=== PATIENT | female | born 2000 | race Caucasian/White ===

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

== ENCOUNTER 2018-05-02 12:51 | Emergency (ER) | payer BC ==
[2018-05-02 15:17] VITALS: BP 125/74
--- NOTE | 2018-05-02 15:37 | UC ---
Ear Complaint HPI - HPI Summary HPI Summary: 17 year old female presents with 2 day history of right ear fullness, pain, and decreased hearing. States she has had URI symptoms for approximately 1 week including nasal congestion, post-nasal drip, sore throat, and occasional non- productive cough. Denies fever, chills, ear drainage, chest pain, shortness of breath, wheezing, abdominal pain, nausea, vomiting, dizziness, or vertigo. - History of Current Complaint Chief Complaint: UCEar Stated Complaint: RIGHT EAR COMPLAINT Time Seen by Provider: 05/02/18 15:21 Hx Obtained From: Patient Hx Last Menstrual Period: 04/29/18 Onset/Duration: Gradual Onset, Lasting Days - 2 Severity Currently: Mild Pain Intensity: 0 Aggravating Factors: Nothing Alleviating Factors: Nothing Associated Signs/Symptoms: Positive: Hearing Loss, URI Symptoms. Negative: Discharge - Allergies/Home Medications Allergies/Adverse Reactions: Allergies Allergy/AdvReac Type Severity Reaction Status Date / Time Iodinated Contrast- Oral and Allergy Unknown Hives Verified 10/03/17 16:39 IV Dye PMH/Surg Hx/FS Hx/Imm Hx Previously Healthy: Yes Respiratory History: Asthma - Surgical History Surgical History: None - Family History Known Family History: Positive: Cardiac Disease - Social History Occupation: Student Lives: Dormitory/Roommates Alcohol Use: None Substance Use Type: None Smoking Status (MU): Never Smoked Tobacco Have You Smoked in the Last Year: No - Immunization History Most Recent Influenza Vaccination: none 2016 Review of Systems Constitutional: Negative Skin: Negative Eyes: Negative ENT: Sore Throat, Ear Ache, Nasal Discharge, Sinus Congestion Respiratory: Negative Cardiovascular: Negative Gastrointestinal: Negative Is Patient Immunocompromised?: No All Other Systems Reviewed And Are Negative: Yes Physical Exam Triage Information Reviewed: Yes Appearance: Well-Appearing, No Pain Distress Vital Signs: Initial Vital Signs Temp 98.0 F 05/02/18 15:13 Pulse 72 05/02/18 15:13 Resp 16 05/02/18 15:13 BP 125/74 05/02/18 15:13 Pulse Ox 99 05/02/18 15:13 Eyes: Positive: Conjunctiva Clear. Negative: Discharge ENT: Positive: Pharyngeal erythema - Mild with cobblestoning, Nasal congestion, TM dull - right, TM red - right, Uvula midline. Negative: Nasal drainage, Tonsillar swelling, Tonsillar exudate, Sinus tenderness Neck: Positive: Supple, Nontender, No Lymphadenopathy Respiratory: Positive: Lungs clear, Normal breath sounds, No respiratory distress Cardiovascular: Positive: RRR, No Murmur Neurological: Positive: Alert Skin Exam: Normal Ear Complaint Course/Dx - Course Course Of Treatment: 17 year old female with 1 week history of URI symptoms and 2 days of right ear pain, fullness, and decreased hearing. Exam revealed a dull , erythematous right TM. Will treat for AOM with 10 day course of amoxicillin and symptomatic treatment. Warning symptoms reviewed with patient. Verbalizes understanding and agrees with POC. - Differential Dx/Diagnosis Differential Diagnosis/HQI/PQRI: Otitis Media, URI Provider Diagnoses: right otitis media, URI Discharge - Sign-Out/Discharge Documenting (check all that apply): Patient Departure All imaging exams completed and their final reports reviewed: No Studies - Discharge Plan Condition: Stable Disposition: HOME Prescriptions: Amoxicillin 875 mg PO BID #20 tablet Fluticasone NASAL SPRAY 50MCG* [Flonase NASAL SPRAY 50MCG*] 2 spray BOTH NARES DAILY #1 btl Patient Education Materials: Ear Infection (ED), Upper Respiratory Infection ( ED) Forms: *Physical Education Release Referrals: No Primary Care Phys,NOPCP [Primary Care Provider] - Additional Instructions: Your exam revealed an infection of the right ear likely secondary to the upper respiratory infection you have been having. We will start you on an antibiotic to treat for the infection. Start amoxicillin 875 mg 1 tab twice a day for 10 days. Take this with food to avoid upset stomach. Be sure to take the entire course even if you are feeling better. Start fluticasone (Flonase) nasal spray 2 sprays each nostril once daily to help reduce inflammation and promote drainage. Take acetaminophen (Tylenol) or ibuprofen (Advil, Motrin) according to directions as needed for pain. Return here or follow at the [facility] if symptoms persist. Seek immediate medical attention if you develop fever greater than 100.5 F, have worsening of pain, drainage or blood from ear, or any worsening of symptoms. - Billing Disposition and Condition Condition: STABLE Disposition: Home
== END 2018-05-02 15:54 | disposition home or self-care (01) ==
LOC: UCCORT 12:51
DX: H66.91 Otitis media, unspecified, right ear (principal); J06.9 Acute upper respiratory infection, unspecified; J45.909 Unspecified asthma, uncomplicated; Z91.041 Radiographic dye allergy status
CPT/HCPCS: 99212; G0463

== ENCOUNTER 2018-06-22 11:47 | Emergency (ER) | payer BC ==
[2018-06-22 12:20] VITALS: BP 109/54
--- NOTE | 2018-06-22 12:42 | UC ---
UC General HPI - HPI Summary HPI Summary: Pt presents with c/o generalized fatigue. Pt reports that she has been "sick all semester". Pt describes having ST, URI like symptoms and generalized fatigue X 3 months. Pt is concerned about having mono. Is requesting mono testing. - History of Current Complaint Chief Complaint: UCGeneralIllness Stated Complaint: FATIGUE Time Seen by Provider: 06/22/18 12:17 Hx Obtained From: Patient Hx Last Menstrual Period: 05/26/18 Onset/Duration: Gradual Onset, Lasting Weeks, Still Present Timing: Constant Onset Severity: Mild Current Severity: Mild Pain Intensity: 0 Associated Signs & Symptoms: Positive: Weakness - Allergy/Home Medications Allergies/Adverse Reactions: Allergies Allergy/AdvReac Type Severity Reaction Status Date / Time Iodinated Contrast- Oral and Allergy Unknown Hives Verified 06/22/18 12:12 IV Dye Home Medications: Home Medications Fluticasone-Salmeterol 250-50* [Advair Diskus 250-50*] 1 puff INH BID 06/22/18 [ History Confirmed 06/22/18] PMH/Surg Hx/FS Hx/Imm Hx Previously Healthy: Yes - Surgical History Surgical History: None - Family History Known Family History: Positive: Cardiac Disease - Social History Occupation: Student Lives: Dormitory/Roommates - [employer] Alcohol Use: None Substance Use Type: None Smoking Status (MU): Never Smoked Tobacco Have You Smoked in the Last Year: No - Immunization History Most Recent Influenza Vaccination: none 2017 Vaccination Up to Date: Yes Review of Systems All Other Systems Reviewed And Are Negative: Yes Constitutional: Positive: Fatigue Skin: Positive: Negative Eyes: Positive: Negative ENT: Positive: Negative Respiratory: Positive: Negative Cardiovascular: Positive: Negative Gastrointestinal: Positive: Negative Genitourinary: Positive: Negative Motor: Positive: Negative Neurovascular: Positive: Negative Musculoskeletal: Positive: Negative Neurological: Positive: Negative Psychological: Positive: Negative Is Patient Immunocompromised?: No Physical Exam Triage Information Reviewed: Yes Appearance: Well-Appearing Vital Signs: Initial Vital Signs Temp 98.2 F 06/22/18 12:14 Pulse 59 06/22/18 12:14 Resp 16 06/22/18 12:14 BP 109/54 06/22/18 12:14 Pulse Ox 100 06/22/18 12:14 Vital Signs Reviewed: Yes Eye Exam: Normal ENT Exam: Normal Dental Exam: Normal Neck exam: Normal Respiratory Exam: Normal Cardiovascular Exam: Normal Musculoskeletal Exam: Normal Neurological Exam: Normal Psychological Exam: Normal Skin Exam: Normal Course/Dx - Differential Dx - Multi-Symptom Differential Diagnoses: Other - mono, anemia, thyroid disorder - Diagnoses Provider Diagnosis: Fatigue Discharge - Sign-Out/Discharge Documenting (check all that apply): Patient Departure All imaging exams completed and their final reports reviewed: No Studies - Discharge Plan Condition: Stable Disposition: HOME Patient Education Materials: Fatigue (ED) [facility]errals: [facility] [Outside] - If Needed No Primary Care Phys,NOPCP [Primary Care Provider] - - Billing Disposition and Condition Condition: STABLE Disposition: Home
[2018-06-22 18:52] LABS: ABS Basophils 0.1 10^3/ul (0-0.2); ABS Eosinophils 0.3 10^3/ul (0-0.6); ABS Monocytes 0.5 10^3/ul (0-0.8); ABS Neutrophils 2.3 10^3/ul (1.5-7.7); ABS Nucleated RBC 0 10^3/ul; Eosinophil % 5.4 %; Hematocrit 39 % (35-47); Hemoglobin 13.2 g/dl (12.0-16.0); Lymphocyte % 39.3 %; Mean Corpuscular HGB Conc 34 g/dl (31-36); Mean Corpuscular Hemoglobin 31 pg (27-31); Mean Corpuscular Volume 89 fL (80-97); Mean Platelet Volume 7.2 fL (7.4-10.4); Nucleated Red Blood Cells % 0; Platelet Count 273 10^3/ul (150-450); Red Blood Count 4.33 10^6/ul (4.00-5.40); Red Cell Distribution Width 14 % (10.5-15); White Blood Count 5.1 10^3/ul (3.5-10.8)
--- NOTE | 2018-06-23 07:37 | UC ---
- Progress Note Progress Note: CBC wnl + monospot please call pt with result supportive care no contact sports until cleared - sports med, student health, pcp dante 06/23/18 Course/Dx - Diagnoses Provider Diagnoses: Fatigue Discharge - Sign-Out/Discharge Documenting (check all that apply): Post-Discharge Follow Up All imaging exams completed and their final reports reviewed: No Studies - Discharge Plan Condition: Stable Disposition: HOME Patient Education Materials: Fatigue (ED) Referrals: [facility] [Outside] - If Needed No Primary Care Phys,NOPCP [Primary Care Provider] - - Billing Disposition and Condition Condition: STABLE Disposition: Home
== END 2018-06-22 12:51 | disposition home or self-care (01) ==
LOC: UCCORT 11:47
DX: R53.83 Other fatigue (principal); Z91.041 Radiographic dye allergy status
CPT/HCPCS: 36415; 85025; 86308; 99211; G0463